=== PATIENT | female | born 1955 | race Caucasian/White ===

== ENCOUNTER 2019-09-27 12:27 | Observation (INO) ==
[2019-09-27 12:58] LABS: Basophils # (auto) 0.03 K/uL (0-0.2); Basophils % (auto) 0.4 %; Eosinophils # (auto) 0.12 K/uL (0-0.5); Eosinophils % (auto) 1.7 %; Hematocrit (blood only) 39.7 % (37-47); Hemoglobin 13.4 g/dL (12.0-16.0); Immature Granulocytes # (auto) 0.02 K/uL (0.00-0.02); Immature Granulocytes % (auto) 0.3 %; Lymphocytes # (auto) 2.11 K/uL (1.2-3.4); Lymphocytes % (auto) 30.7 %; Mean Corpuscular Hemoglobin 29.3 pg (25-34); Mean Corpuscular Hgb Conc 33.8 g/dL (32-36); Mean Corpuscular Volume 86.9 fL (80-100); Mean Platelet Volume 10.2 fL (7.4-10.4); Monocytes # (auto) 0.48 K/uL (0.11-0.59); Neutrophils # (auto) 4.12 K/uL (1.4-6.5); Neutrophils % (auto) 59.9 %; Platelet Count 198 K/uL (130-400); RDW Standard Deviation 41.5 fL (36.4-46.3); Red Blood Count 4.57 M/uL (4.2-5.4); White Blood Count 6.88 K/uL (4.8-10.8)
[2019-09-27] MEDS ORDERED: NITROGLYCERIN SL 0.4 MG/TAB TAB SL STA (13:03)
[2019-09-27 13:15] LABS: Alanine Aminotransferase 25 U/L (12-78); Aspartate Aminotransferase 15 U/L (15-37); BUN Creatinine Ratio 18.9 (10-20); Blood Urea Nitrogen 15 mg/dl (7-18); Calcium 9.2 mg/dl (8.5-10.1); Carbon Dioxide 27 mmol/L (21-32); Chloride 106 mmol/L (98-107); Creatinine Clr Calc Pharmacy 84.9 ml/min; Est GFR (African American) 89.6; Est GFR (Non-African American) 77.3; Glucose 101 mg/dl (70-99); Lipase 153 U/L (73-393); Potassium 3.8 mmol/L (3.5-5.1); Sodium 139 mmol/L (136-145)
[2019-09-27 13:20] LABS: Albumin Globulin Ratio 1.1 (0.9-2); Alkaline Phosphatase 72 U/L (45-117); Bilirubin,Total 0.4 mg/dl (0.2-1); Globulin 3.7 gm/dl (2.5-4.0); Total Protein 7.7 gm/dl (6.4-8.2); Troponin I < 0.015 ng/ml (0-0.045)
[2019-09-27 13:41] LABS: Partial Thromboplastin Time 26.9 Seconds (21.0-31.0); Prothrombin Time 10.5 Seconds (9.0-12.0)
--- NOTE | 2019-09-27 13:43 | XRay Report ---
SINGLE VIEW CHEST CLINICAL HISTORY: Atypical chest pain. FINDINGS: An AP, portable, upright chest radiograph is obtained. No prior studies are available for c omparison at the time of dictation. The cardiomediastinal silhouette is unremarkable. The lungs and p leural spaces are clear. No pneumothorax is seen. The skeletal structures are osteopenic. The bony th orax is grossly intact. IMPRESSION: No active disease in the chest. Electronically signed by: Farhat Parsons M.D. 09/27/2019 1:41 PM
--- NOTE | 2019-09-27 17:52 | Emergency Department Note ---
Entered by Karthikeyan Moreno acting as a scribe for Mayank Ordonez MD ED Provider Note CHIEF COMPLAINT: Chest pain HISTORY OF PRESENT ILLNESS: The patient is a 64 year old female who presents to the Emergency Room with complaints of intermittent left sided chest discomfort that started 5 days ago. The patient rates the pain as a 5/10 at its worst but notes currently her pain is just a 3/10. The patient states that today's pain started about 6 hours ago upon waking up this morning. The patient adds that she has associated tingling down her left arm and a burning pain in her jaw. Additionally the patient endorses intermittent headaches. The patient mentioned that she had rheumatic fever as a child and has had 4 similar episodes of this chest pain in the past. The patient was seen at her doctors office prior to arrival today where she received Nitro and 2 baby Aspirin with no relief of symptoms. The patient denies any lower extremity swelling, recent travel or recent surgeries. The patient does have a family history of CAD. Pt denies LOC, fevers, chills, diaphoresis, visual changes, neck pain, breathing difficulties, nausea, vomiting, abdominal pain, back pain, melena, hematochezia, urinary symptoms, numbness, weakness, lymphadenopathy, rash, or other complaints. REVIEW OF SYSTEMS: See HPI for pertinent positives and negatives. A total of ten systems were reviewed and were otherwise negative. PMHx/PSHx: Cervical radiculopathy, Rosacea, HTN SOCIAL HISTORY: Patient lives at home. PHYSICAL EXAM: GENERAL: Awake, alert, well-appearing, in no distress HENT: Normocephalic, atraumatic. Oropharynx unremarkable. EYES: Normal conjunctiva. Sclera non-icteric. NECK: Inspection normal. Non-tender. Supple. No nuchal rigidity. FROM. No masses. RESPIRATORY: Clear to auscultation. No wheezes. No rales. Normal respiratory effort. CARDIAC: Normal rate. Normal rhythm. No murmurs. No rubs. Extremities warm and well perfused. Pulses equal. No JVD. GI: Soft, non-distended. No tenderness to palpation. No rebound or guarding. No masses. RECTAL: Deferred. MUSCULOSKELETAL: Atraumatic. Chest examination reveals no tenderness. The back is symmetrical on inspection without obvious abnormality. There is no CVA tenderness to palpation. No joint edema. LOWER EXTREMITIES: Calves are equal size bilaterally and non-tender. No edema. No discoloration. NEURO: Normal sensorium. No sensory or motor deficits noted. SKIN: No rash or jaundice noted. EMERGENCY DEPARTMENT COURSE: 1259: The patient was evaluated in room A03, and a complete history and physical examination were performed. 1447: I discussed the patient's case with Dr. Lenz - Cardiology and he is going to bring the patient over for an echo test. 1506: I went to udpdate the patient on the plan and she was already brought to the stress test. 1540: I spoke to Dr. Lenz who said the patient's stress test was abnormal. She developed ventricular bigeminy along with ST changes.They are going to pursue a formal echo at this point and recommended keeping the patient for cardiac observation. 1624: I reevaluated the patient and she is resting in bed. I updated her on the results as well as the treatment plan and she is agreeable. 1634: I discussed the patient's case with Dr. Rapp - [facility] Hospitalist. She is going to accept the patient for further evaluation. MEDICAL DECISION MAKING: A3 Prior records/ancillary studies reviewed. Triage Nursing notes reviewed and agree them. Additional history obtained from the family. The patient's history was concerning for chest pain. Differential diagnosis: Etiologies such as cardiac ischemia, aortic dissection, pulmonary embolism, pneumonia, pneumothorax, musculoskeletal, infections, pericarditis, myocarditis, esophageal rupture, gastrointestinal, as well as others were entertained. Physical examination: As above. ER treatment provided: Sublingual nitroglycerin Cardiac monitoring On reassessment the patient felt better. Diagnostic interpretation by me: The electrocardiogram was negative for pathologic change. The labs revealed an unremarkable CBC and chemistry panel. Troponin negative. Imaging studies: Chest x-ray negative for acute process. Consultation: A consultation was placed with cardiology, Dr. Celso Lenz. The case was discussed. He agreed to perform a stress test in order to further evaluate the need for admission. The patient unfortunately had an abnormal stress test and cardiology required additional time to elucidate the causes of her chest pain and this abnormal stress test. A consultation was placed with the hospitalist. The case was discussed and diagnostics were reviewed. The patient was evaluated in the ER for further treatment. OBSERVATION NOTE: The patient has a family history of coronary heart disease. Patient was first seen at 12:59 and observation began at 12:59 and was necessary in order to determine if hospitalization is necessary for further cardiac evaluation. Upon reevaluation, about 4 hours of observation revealed that the patient should be admitted to the hospitalist service. Admission occurred on 09/27/19 at 16:44. IMPRESSION: Left sided chest pain Abnormal cardiac stress test Hypertension PLAN: Being evaluated by the hospitalist The scribe's documentation has been prepared under my direction and personally reviewed by me in its entirety. I confirm that the note above accurately reflects all work, treatment, procedures, and medical decision making performed by me. Impression & Plan Left-sided chest pain, Abnormal cardiovascular stress test, Hypertension Past Med/Surg History Medical History Benign essential hypertension (Acute) Cervical radiculopathy at C7 (Acute) Cervicalgia (Acute) Rosacea (Acute) Family History Other Coronary heart disease Social History marital status: Current Living Situation: Family current occupational status: unemployed Feels Safe at Home: Yes Smoking Status: Never smoker Hx Alcohol Use: No Hx Substance Use: No Dental Care, Regularly: Yes Physical Activity Frequency: Other Seatbelt Use: always Sunscreen Use: Yes Results & Data Vital Signs Vital Signs - 24 hr 09/27/19 12:32 09/27/19 12:40 09/27/19 12:52 Temperature 36.6 C Temperature Source Oral Pulse Rate 66 58 L 60 Pulse Rate [Apical] Pulse Rate from SpO2 Sensor 59 L Pulse Rhythm Regular Pulse Rhythm [Apical] Respiratory Rate 18 12 Respiratory Effort / Characteristics Respiratory Depth Normal Blood Pressure 205/103 H 177/79 H Blood Pressure [Right Arm] Blood Pressure Mean 137 114 Blood Pressure Mean [Right Arm] Blood Pressure Position [Right Arm] Pulse Oximetry 99 98 97 Oxygen Delivery Method Room Air Room Air Sepsis Recent Fever Within 48 Hours No Sepsis New/Unexplained Change in Mental Status No Sepsis Action Taken by Nursing No Action Required 09/27/19 12:56 09/27/19 13:00 09/27/19 13:15 Temperature Temperature Source Pulse Rate 65 Pulse Rate [Apical] 65 Pulse Rate from SpO2 Sensor 66 Pulse Rhythm Pulse Rhythm [Apical] Regular Respiratory Rate 23 13 Respiratory Effort / Characteristics Respiratory Depth Normal Blood Pressure 171/102 H Blood Pressure [Right Arm] 155/82 H Blood Pressure Mean 133 Blood Pressure Mean [Right Arm] 106 Blood Pressure Position [Right Arm] Sitting Pulse Oximetry 97 100 97 Oxygen Delivery Method Room Air Room Air Sepsis Recent Fever Within 48 Hours Sepsis New/Unexplained Change in Mental Status Sepsis Action Taken by Nursing 09/27/19 14:15 09/27/19 16:28 Temperature Temperature Source Pulse Rate Pulse Rate [Apical] 58 L 72 Pulse Rate from SpO2 Sensor Pulse Rhythm Pulse Rhythm [Apical] Respiratory Rate 14 18 Respiratory Effort / Characteristics Non-Labored Respiratory Depth Normal Blood Pressure Blood Pressure [Right Arm] 182/78 H 187/104 H Blood Pressure Mean Blood Pressure Mean [Right Arm] 112 131 Blood Pressure Position [Right Arm] Sitting Pulse Oximetry 99 100 Oxygen Delivery Method Room Air Sepsis Recent Fever Within 48 Hours Sepsis New/Unexplained Change in Mental Status Sepsis Action Taken by [facility] Medications Current Medication List: was personally reviewed by me Laboratory Data Attestation: I reviewed the patient's lab results. Result diagrams: 09/27/19 12:48 09/27/19 12:48 Lab Results 09/27/19 09/27/19 09/27/19 Range/Units 12:48 12:48 12:48 WBC 6.88 (4.8-10.8) K/uL RBC 4.57 (4.2-5.4) M/uL Hgb 13.4 (12.0-16.0) g/dL Hct 39.7 (37-47) % MCV 86.9 (80-100) fL MCH 29.3 (25-34) pg MCHC 33.8 (32-36) g/dL RDW Std Deviation 41.5 (36.4-46.3) fL RDW Coeff of Dio 13.0 (11.5-14.5) % Plt Count 198 (130-400) K/uL MPV 10.2 (7.4-10.4) fL Immature Gran % (Auto) 0.3 % Neut % (Auto) 59.9 % Lymph % (Auto) 30.7 % Carroll % (Auto) 7.0 % Eos % (Auto) 1.7 % Baso % (Auto) 0.4 % Immature Gran # (Auto) 0.02 (0.00-0.02) K/uL Neut # (Auto) 4.12 (1.4-6.5) K/uL Lymph # (Auto) 2.11 (1.2-3.4) K/uL Carroll # (Auto) 0.48 (0.11-0.59) K/uL Eos # (Auto) 0.12 (0-0.5) K/uL Baso # (Auto) 0.03 (0-0.2) K/uL PT Cancelled INR Cancelled APTT Cancelled PTT Ratio Cancelled Sodium 139 (136-145) mmol/L Potassium 3.8 (3.5-5.1) mmol/L Chloride 106 (98-107) mmol/L Carbon Dioxide 27 (21-32) mmol/L Anion Gap 7.0 (3-11) BUN 15 (7-18) mg/dl Creatinine 0.81 (0.6-1.2) mg/dl Est Cr Clr Drug Dosing 84.9 ml/min Est GFR ( Amer) 89.6 Est GFR (Non-Af Amer) 77.3 BUN/Creatinine Ratio 18.9 (10-20) Glucose 101 H (70-99) mg/dl Calcium 9.2 (8.5-10.1) mg/dl Total Bilirubin 0.4 (0.2-1) mg/dl AST 15 (15-37) U/L ALT 25 (12-78) U/L Alkaline Phosphatase 72 (45-117) U/L Troponin I < 0.015 (0-0.045) ng/ml Total Protein 7.7 (6.4-8.2) gm/dl Albumin 4.0 (3.4-5.0) gm/dl Globulin 3.7 (2.5-4.0) gm/dl Albumin/Globulin Ratio 1.1 (0.9-2) Lipase 153 (73-393) U/L 09/27/19 Range/Units 13:18 WBC (4.8-10.8) K/uL RBC (4.2-5.4) M/uL Hgb (12.0-16.0) g/dL Hct (37-47) % MCV (80-100) fL MCH (25-34) pg MCHC (32-36) g/dL RDW Std Deviation (36.4-46.3) fL RDW Coeff of Dio (11.5-14.5) % Plt Count (130-400) K/uL MPV (7.4-10.4) fL Immature Gran % (Auto) % Neut % (Auto) % Lymph % (Auto) % Carroll % (Auto) % Eos % (Auto) % Baso % (Auto) % Immature Gran # (Auto) (0.00-0.02) K/uL Neut # (Auto) (1.4-6.5) K/uL Lymph # (Auto) (1.2-3.4) K/uL Carroll # (Auto) (0.11-0.59) K/uL Eos # (Auto) (0-0.5) K/uL Baso # (Auto) (0-0.2) K/uL PT 10.5 INR 1.0 APTT 26.9 PTT Ratio 1.0 Sodium (136-145) mmol/L Potassium (3.5-5.1) mmol/L Chloride (98-107) mmol/L Carbon Dioxide (21-32) mmol/L Anion Gap (3-11) BUN (7-18) mg/dl Creatinine (0.6-1.2) mg/dl Est Cr Clr Drug Dosing ml/min Est GFR ( Amer) Est GFR (Non-Af Amer) BUN/Creatinine Ratio (10-20) Glucose (70-99) mg/dl Calcium (8.5-10.1) mg/dl Total Bilirubin (0.2-1) mg/dl AST (15-37) U/L ALT (12-78) U/L Alkaline Phosphatase (45-117) U/L Troponin I (0-0.045) ng/ml Total Protein (6.4-8.2) gm/dl Albumin (3.4-5.0) gm/dl Globulin (2.5-4.0) gm/dl Albumin/Globulin Ratio (0.9-2) Lipase (73-393) U/L Administered Medications Discontinued Medications Nitroglycerin (Nitrostat) 0.4 mg SL NOW STA Stop: 09/27/19 13:04 Last Admin: 09/27/19 13:13 Dose: 0.4 mg Documented by: [id number] Imaging Data Radiologist's Impression: Radiology results as stated below per my review and the radiologist's interpretation: SINGLE VIEW CHEST CLINICAL HISTORY: Atypical chest pain. FINDINGS: An AP, portable, upright chest radiograph is obtained. No prior studies are available for comparison at the time of dictation. The cardiomediastinal silhouette is unremarkable. The lungs and pleural spaces are clear. No pneumothorax is seen. The skeletal structures are osteopenic. The bony thorax is grossly intact. IMPRESSION: No active disease in the chest. Electronically signed by: Farhat Parsons M.D. 09/27/2019 1:41 PM ECG Data Attestation: I personally reviewed and interpreted this ECG as follows: Indication: + chest pain Rate (beats per minute): 57 Rhythm: sinus bradycardia ECG ST segments: no ST depression and no ST elevation ECG Findings: no PACs and no PVCs Blood Pressure Blood Pressure Findings: Elevated blood pressure Blood Pressure Disposition: further management by hospitalist Discharge Plan Visit Data Chief Complaint: Chest Pain Stated Complaint: CHEST PAIN TINGLING DOWN ARM REF BY DR WONG ED Provider: Mayank Ordonez Discharge Problem: Left-sided chest pain, Abnormal cardiovascular stress test, Hypertension Patient Disposition: Being Evaluated by Hospitalist Forms Stand Alone Forms: Call Back Authorization, [facility] Prescriptions Prescriptions: No Action metoprolol tartrate 50 mg tablet 25 mg PO BID Qty: 90 RF: 3 naproxen sodium 220 mg tablet 220 mg PO BID RF: 0 ascorbic acid (vitamin C) 500 mg tablet 500 mg PO BID RF: 0 cod liver oil capsule 1 cap PO QAM RF: 0 Referrals Referrals: Farhat Wong MD [Primary Care Provider] - Discharge Problem: Hypertension Qualifiers: Hypertension type: unspecified Qualified Code(s): I10 - Essential (primary) hypertension The scribe's documentation has been prepared under my direction and personally reviewed by me in its entirety. I confirm that the note above accurately reflects all work, treatment, procedures, and medical decision making performed by me.
--- NOTE | 2019-09-27 18:17 | History & Physical Report ---
Date of Service September 27, 2019 Assessment & Plan (1) Left-sided chest pain: Thelma is a 64-year-old female with a past medical history of self-limited sarcoidosis, rheumatic fever, and hypertension who presents with an episode of palpitations and who was noted to have potential Q waves on outpatient EKG. Atypical chest pain/palpitations with abnormal EKG and stress test Ventricular bigeminy induced on exercise stress test, resolved with rest EKG shows sinus bradycardia, normal axis, no T wave inversions, no ST segment changes. ?q waves in lateral leads (I, aVL) Hemodynamically stable at time of visit Cardiology consulted Transthoracic echo pending Evaluation for cardiac catheterization by cardiology pending Troponin negative, trend troponin every 6 hours x3 total No improvement in pain with nitro sublingual No history of high alcohol intake Hypertension Continue metoprolol 50 mg twice daily, hold for heart rate less than 60 History of sarcoidosis Patient has a history of sarcoidosis noted on lymph node biopsy which was reportedly done at [facility] 8 years ago. Per patient self resolved, and has not had any symptoms or need to follow-up since then. FEN/GI: Heart healthy diet, n.p.o. at midnight DVT prophylaxis: SCDs Disposition: PCU/telemetry (2) Abnormal cardiovascular stress test: (3) Hypertension: History of Present Illness Chief Complaint: Palpitations, atypical chest pain Primary Care Provider: Farhat Urias MD Thelma is a 64-year-old female with a past medical history of self-limited sarcoidosis, rheumatic fever, and hypertension who presents with an episode of palpitations and who was noted to have potential Q waves on outpatient EKG. Farnaz symptoms began night, 5 days prior to admission, when she did not have any pain but had a strong sense of her heartbeat and palpitations in her chest. The next morning she continued to have a burning ache in her left upper chest which radiated into her jaw and chin and down the proximal part of her left arm and shoulder. This was not associated with exercise, it was not worsened by exercise, and she did not experience diaphoresis, lightheadedness, dizziness, or syncope with this episode. She had an associated headache. Her systems intermittently persisted over the weekend and she presented to her primary care physician for evaluation today. In office EKG was concerning for Q waves, and her pain did not improve with Nitro or aspirin x2. she was referred to the ED for further evaluation. She was experiencing left chest burning, and left arm discomfort which did not improve with nitro. She denies any recent exposure to ticks, denies erythema migrans, no fever/chills/arthralgias/joint swelling. After arrival to the hospital cardiology was consulted and she received a exercise stress test. She immediately developed ventricular bigeminy on exercise stress which resolved following cessation of exercise. This induced the palpitations. She did not have any pain, but did get a slight headache. She reports she has been evaluated for similar symptoms twice in the past. Her first episode was 34 years ago when she had a sling box style Holter which did not show any acute findings. She had symptoms 6 years ago and had another EKG, Holter, and journal log done at [facility] which did not show any acute findings. Review of systems: Denies fever, chills, sweats. Endorses headache. Denies current lightheadedness/dizziness, endorses an episode of lightheadedness 2 weekends ago which resolved with nasal decongestant. Denies syncope. Denies vision change. Denies hearing change. Denies neck swelling, neck stiffness. Denies focal or diffuse weakness. Denies focal neurologic deficits. She denies shortness of breath, productive cough, endorses a postnasal drip cough, denies nausea, vomiting, diarrhea, constipation, abdominal pain, rash, skin changes. She endorses occasional itchy spots on her nose which resolved with cream. Surgical history: Tonsillectomy, section, sinus surgery, and a lymph node biopsy for lung cancer versus sarcoidosis at [facility] which was reportedly positive for sarcoidosis which self resolved without intervention or treatment. Family history: Coronary artery disease and hypertension in her mother, father. No diabetes mellitus. Denies colon cancer, lung cancer, or thyroid cancer. Social history: Reviewed. , is present during exam. Denies any current or former tobacco use, denies alcohol use, denies recreational substance use. Allergies Allergy/AdvReac Type Severity Reaction Status Date / Time No Known Drug Allergies Allergy Verified 09/27/19 13:51 Home Medications Home Medications Medication Instructions Recorded Confirmed Type metoprolol tartrate 50 mg tablet 25 mg PO BID #90 tab 07/06/19 09/27/19 Rx ascorbic acid (vitamin C) 500 mg 500 mg PO BID 09/27/19 09/27/19 History tablet cod liver oil 1 cap PO QAM 09/27/19 09/27/19 History naproxen sodium 220 mg tablet 220 mg PO BID 09/27/19 09/27/19 History Past Med/Surg History Medical History (Updated 09/27/19 @ 18:08 by Nik Dacosta MD) Benign essential hypertension (Acute) Cervical radiculopathy at C7 (Acute) Cervicalgia (Acute) Rosacea (Acute) Sarcoidosis of lymph nodes Family History Other Coronary heart disease Social History marital status: Current Living Situation: Family current occupational status: unemployed Feels Safe at Home: Yes Smoking Status: Never smoker Hx Alcohol Use: No Hx Substance Use: No Dental Care, Regularly: Yes Physical Activity Frequency: Other Seatbelt Use: always Sunscreen Use: Yes Review of Systems Review of Systems: All systems reviewed & are unremarkable except as noted in HPI & below Physical Exam Physical Exam: General: A&Ox3. NAD. Cooperative. Speech fluent, thought process linear, goal-directed. HEENT: Atraumatic, normocephalic. No facial asymmetry. No nasolabial flattening or hypertonicity. Facial strength intact, facial sensation intact in all distributions. Normal external nasal anatomy. Normal external ear anatomy. Nonicteric sclera. Extraocular movements intact without nystagmus. Pupils equal and reactive to light and accommodation. Mucous membranes moist. Posterior oropharynx without erythema, exudate. Uvula midline. No anterior/posterior cervical chain adenopathy, no clavicular adenopathy. Pulm: CTAB A&P. -wheezes, -rales, -rhonchi. Symmetrical chest rise. No increase work of breathing. No respiratory distress. Cardiac: Bradycardic, -mrg. Radial pulses intact and symmetrical, PT pulses intact and symmetrical Abdominal: Nontender, nondistended, soft. BS present. Extremity: Sensation to soft touch intact in hallux and fingertips bilaterally without asymmetry. Finger flexion/extension, nurses director strength, interosseous strength, wrist flexion/extension, elbow flexion/extension, shoulder internal rotation/external rotation/flexion/extension, hip flexion, knee flexion/extension, ankle plantar flexion/dorsiflexion intact with 5/5 strength bilaterally. Constitutional: WD/WN, vitals as above Eyes: normal visual villalpando by confrontation and + anicteric sclerae Neck: normal visual inspection and trachea midline Respiratory: normal respiratory effort, lungs clear to auscultation Cardiovascular: Rate/Rhythm: regular rate and regular rhythm Gastrointestinal (Abdomen): Inspection/Auscultation: abdomen not distended Percussion/Palpation: abdomen soft; abdomen nontender Musculoskeletal: Head/Neck/Chest: normocephalic and head atraumatic Neg for peripheral LE edema, + pedal pulses Skin: no rashes, warm and dry Neurologic: awake; not confused Speech / Cognition: normal speech Psychiatric: A+Ox3, euthymic affect Lymphatic: Exam as done by Diana Rapp DO Results & Data Vital Signs (Past 12 Hours) Vital Signs Temp Pulse Pulse Resp BP BP Pulse Ox 09/27/19 16:28 72 18 187/104 H 100 09/27/19 14:15 58 L 14 182/78 H 99 09/27/19 13:15 65 13 155/82 H 97 09/27/19 13:00 65 23 171/102 H 100 09/27/19 12:56 97 09/27/19 12:52 60 12 177/79 H 97 09/27/19 12:40 58 L 98 09/27/19 12:32 36.6 C 66 18 205/103 H 99 Supervising Physician Co-Signing Physician Notes Pt seen and examined by me. Continues to have a mild 1/10 chest pain and headache as she has had for the last few days. She also has some L UE tingling, which is decreased from prior. She was given nitro and aspirin but there was no change in her sx. She has been tolerating PO without issue and is hungry. Agree with HPI/ROS as noted by resident See above for my exam in PE section Agree with plan as outlined above Chest pain, ventricular bigeminy noted on stress test ECHO done but with read pending Trop neg x1, serials pending CXR neg for acute EKG sinus guillermo Has hx of 2 other similar events 34 and 6 yrs ago, work-up was neg at that time Cardiology c/s pending, possible cath tomorrow Reported hx of nodule that was noted to be sarcoid on biopsy 8 yrs ago, but no hx of tx and no recurrence Resident Activity Tracking Resident Involvement: Resident Care Provided Care Provided: Adult Hospital Medicine (1) Hypertension Hypertension type: unspecified Qualified Code(s): I10 - Essential (primary) hypertension
[2019-09-27] MEDS ORDERED: HydrALAZINE 10 MG TAB PO PRN (18:28)
[2019-09-27] MEDS ORDERED: HydrALAZINE HCL 20 MG/ML VIAL ONE (19:28)
[2019-09-27] MEDS ORDERED: ACETAMINOPHEN 325 MG TAB PO PRN (19:55)
[2019-09-27] MEDS ORDERED: NITROGLYCERIN SL 0.4 MG/TAB TAB SL PRN (19:55)
[2019-09-27] MEDS ORDERED: POLYETHYLENE (MIRALAX) 17 GM PACK PO PRN (19:55)
--- NOTE | 2019-09-27 20:29 | Billing Data ---
Coding Level of Care Code 20136 Initial Inpt Care Lvl 3
[2019-09-27] MEDS: METOPROLOL TARTRATE 25 MG TAB PO SCH (21:01)
[2019-09-27] MEDS: ASCORBIC ACID 500 MG TAB PO SCH (21:01)
[2019-09-28] MEDS ORDERED: INFLUENZA ADMINISTRATION CHARGE ONE (01:30)
[2019-09-28] MEDS ORDERED: INFLUENZA VIRUS QUAD VACCINE 0.5 ML SYR IM ONE (01:30)
[2019-09-28] MEDS: METOPROLOL TARTRATE 25 MG TAB PO SCH (09:02)
[2019-09-28] MEDS: ASCORBIC ACID 500 MG TAB PO SCH (09:02)
--- NOTE | 2019-09-28 10:27 | Cardiology Consultation ---
Date of Consultation September 28, 2019 Assessment & Plan (1) Left-sided chest pain: Her left-sided chest discomfort has resolved, the cause of it remains uncertain. With negative cardiac enzymes, no significant electrocardiographic abnormalities and a negative stress echo for ischemia it is almost certainly noncardiac. I did tell her we would probably not know the cause of it. (2) Frequent unifocal PVCs: She did have frequent PVCs and ventricular bigeminy on stress testing yesterday, this did reproduce her clinical symptoms of palpitations which dates back many years. Here on telemetry she has had no premature ventricular beats, I did have her walk somewhat briskly around the hallway and although her heart rate did not come up as high as it did on the stress test she did not have any premature ventricular beats. She has been maintained on metoprolol tartrate 25 mg twice a day as an outpatient, I would recommend increasing that to metoprolol 100 mg daily which could be in divided doses although using metoprolol succinate 100 mg once daily would probably be reasonable. (3) Hypertension: She does have significant hypertension, she has been treated in the past but her pressure was quite elevated here. Since beta-blockade will likely help with her blood pressure as well as her premature ventricular beats I recommended that she use increase beta-blockers to try to control her blood pressure. History of Present Illness Reason for Consultation: Chest discomfort, PVCs Attending Physician: Erma Rodarte MD History of Present Illness This is a 64-year-old woman who has a history of sarcoidosis, rheumatic fever with no known valvular problems, hypertension, long-standing palpitations and chest discomfort recently. She presented to her PCP on September 27, 2019 with symptoms of chest discomfort which occurred about 5 days prior to presentation and was in her chest, her left arm and her jaw. It was not exercise related, had been continuous for that duration of time although not severe. She was given aspirin nitroglycerin with possible improvement but not relief, and she was sent to the emergency room. In the emergency room she continued to have the discomfort, troponin x2 was negative and therefore we performed a treadmill exercise test on September 27, 2019. During the stress test she quickly went into ventricular bigeminy, had shortness of breath and had no change in her chest discomfort. The stress images were negative for ischemia although little hard to interpret due to the ventricular bigeminy. The electrocardiographic recordings during the test were technically positive with ST depression but again hard to interpret due to the ventricular bigeminy. We felt she should be admitted for observation. She does have a history of palpitations going back to when her twins were born which was 30 some years ago. She felt that the palpitations she had during the stress test when she developed ventricular bigeminy were quite similar. Apparently over the years she has had these on several occasions but not very often and has had it evaluated with Holter monitors which evidently did not show anything as well as probably echocardiography but I have not seen those records. She has felt well overnight, she has had essentially resolution of her chest discomfort and has not had palpitations. This morning she feels normal. Allergies Allergy/AdvReac Type Severity Reaction Status Date / Time No Known Drug Allergies Allergy Verified 09/27/19 13:51 Home Medications Home Medications Medication Instructions Recorded Confirmed Type metoprolol tartrate 50 mg tablet 25 mg PO BID #90 tab 07/06/19 09/27/19 Rx ascorbic acid (vitamin C) 500 mg 500 mg PO BID 09/27/19 09/27/19 History tablet cod liver oil 1 cap PO QAM 09/27/19 09/27/19 History naproxen sodium 220 mg tablet 220 mg PO BID 09/27/19 09/27/19 History Patient History Medical History Benign essential hypertension (Acute) Cervical radiculopathy at C7 (Acute) Cervicalgia (Acute) Rosacea (Acute) Sarcoidosis of lymph nodes Family History Other Coronary heart disease Social History Preferred Language: Serbian Communication Ability: Effective Home Health Aide Caregiver Required: No Beliefs That Will Affect Care: None marital status: Current Living Situation: Spouse and Family Current Living Situation Comment: and 2 adult children current occupational status: unemployed Other Information That Helps Us Care for You: No Feels Safe at Home: Yes Safety Concerns: Feels Safe At This Time Smoking Status: Never smoker Second Hand Exposure: No ; Hx Alcohol Use: No Hx Substance Use: No Dental Care, Regularly: Yes Physical Activity Frequency: Other Seatbelt Use: always Sunscreen Use: Yes Review of Systems Review of Systems: All systems reviewed & are unremarkable except as noted in HPI & below Physical Exam Physical Exam: Constitutional: Alert, cooperative and in no distress. HEENT: Unremarkable Neck: No jugular venous distention, carotid pulses are normal and equal bilaterally without bruits. Pulmonary: Clear to auscultation bilaterally. Cardiac: Regular rhythm with no murmur, gallop or rub. Abdomen: Soft, nontender with normal bowel sounds. Extremities: No edema. Distal pulses intact. Neurologic: No focal findings. Gait is steady. Skin: No rash, ecchymoses or petechiae. Results & Data Vital Signs (Past 12 Hours) Vital Signs Temp Pulse Pulse Resp BP Pulse Ox 09/28/19 07:47 68 09/28/19 07:29 36.6 C 60 18 129/81 98 09/28/19 03:10 36.7 C 61 18 123/76 98 09/27/19 23:18 36.5 C 55 L 18 138/78 98 Diagnostic Findings Her electrocardiogram from September 27, 2019 done in our emergency room shows sinus bradycardia at 57 bpm, it is otherwise unremarkable. There is a comparison electrocardiogram done at her PCPs office several hours earlier which shows sinus bradycardia at 56 bpm and it looks very similar. Telemetry: Sinus rhythm, essentially no premature ventricular beats overnight. PG Care Time/CCT Total # of Minutes Spent Total Time Spent with Patient: Total time spent is greater than 50% in c oordination of care (as documented) at patient's floor/unit and/or counseling patient: (1) Hypertension Hypertension type: unspecified Qualified Code(s): I10 - Essential (primary) hypertension
--- NOTE | 2019-09-28 11:34 | Discharge Summary ---
Date of Service September 28, 2019 Admission HPI Per Admitting Provider Thelma is a 64-year-old female with a past medical history of self-limited sarcoidosis, rheumatic fever, and hypertension who presents with an episode of palpitations and who was noted to have potential Q waves on outpatient EKG. Farnaz symptoms began night, 5 days prior to admission, when she did not have any pain but had a strong sense of her heartbeat and palpitations in her chest. The next morning she continued to have a burning ache in her left upper chest which radiated into her jaw and chin and down the proximal part of her left arm and shoulder. This was not associated with exercise, it was not worsened by exercise, and she did not experience diaphoresis, lightheadedness, dizziness, or syncope with this episode. She had an associated headache. Her systems intermittently persisted over the weekend and she presented to her primary care physician for evaluation today. In office EKG was concerning for Q waves, and her pain did not improve with Nitro or aspirin x2. she was referred to the ED for further evaluation. She was experiencing left chest burning, and left arm discomfort which did not improve with nitro. She denies any recent exposure to ticks, denies erythema migrans, no fever/chills/arthralgias/joint swelling. After arrival to the hospital cardiology was consulted and she received a exercise stress test. She immediately developed ventricular bigeminy on exercise stress which resolved following cessation of exercise. This induced the palpitations. She did not have any pain, but did get a slight headache. She reports she has been evaluated for similar symptoms twice in the past. Her first episode was 34 years ago when she had a sling box style Holter which did not show any acute findings. She had symptoms 6 years ago and had another EKG, Holter, and journal log done at [facility] which did not show any acute findings. Review of systems: Denies fever, chills, sweats. Endorses headache. Denies current lightheadedness/dizziness, endorses an episode of lightheadedness 2 weekends ago which resolved with nasal decongestant. Denies syncope. Denies vision change. Denies hearing change. Denies neck swelling, neck stiffness. Denies focal or diffuse weakness. Denies focal neurologic deficits. She denies shortness of breath, productive cough, endorses a postnasal drip cough, denies nausea, vomiting, diarrhea, constipation, abdominal pain, rash, skin changes. She endorses occasional itchy spots on her nose which resolved with cream. Surgical history: Tonsillectomy, section, sinus surgery, and a lymph node biopsy for lung cancer versus sarcoidosis at [facility] which was reportedly positive for sarcoidosis which self resolved without intervention or treatment. Family history: Coronary artery disease and hypertension in her mother, father. No diabetes mellitus. Denies colon cancer, lung cancer, or thyroid cancer. Social history: Reviewed. , is present during exam. Denies any current or former tobacco use, denies alcohol use, denies recreational substance use. Principal Diagnosis Atypical, noncardiac chest pain Ventricular bigeminy Discharge Exam Constitutional WD/WN, vitals as above Eyes PERRL, conjunctivae normal, anicteric sclerae ENMT external ear and nose normal, oropharynx normal Neck trachea midline, no thyromegaly Respiratory normal respiratory effort, lungs clear to auscultation Cardiovascular RRR, no murmur, no edema Gastrointestinal (Abdomen) normal bowel sounds, soft, nontender, no hepatosplenomegaly Musculoskeletal Extremities: extremities normal to inspection; no cyanosis and no clubbing Skin no rashes, warm and dry Neurologic patellar DTR's 2+ bilat, sensation intact and PERRL, EOMI, accommodation nl, no face palsy, no dysarthria CN's II-XI intact bilaterally, moves all extremities (5 out of 5 strength throughout) and awake; no focal motor deficits Speech / Cognition: normal speech Motor/Sensory: no tremor Psychiatric A+Ox3, euthymic affect Discharge Data Allergies Allergy/AdvReac Type Severity Reaction Status Date / Time No Known Drug Allergies Allergy Verified 09/27/19 13:51 Consultations 09/27/19 16:24 ED Decision to Admit Stat 09/27/19 19:55 Consult Cardiology Routine Procedures Performed Stress echocardiogram if negative for inducible ischemia, preserved EF Ordered Studies Chest x-ray Hospital Course (1) Left-sided chest pain: Thelma is a 64-year-old female with a past medical history of self-limited pulmonary sarcoidosis, rheumatic fever, and hypertension who presents with an episode of palpitations and left-sided chest pain radiating to the neck and down the arm that was constant for 4 days and who was noted to have potential Q waves on outpatient EKG. Atypical chest pain/palpitations with abnormal EKG and stress test that was negative however induced ventricular bigeminy Ventricular bigeminy induced on exercise stress test, resolved with rest- cardiology does not feel that the bigeminy is related to ischemia and therefore does not need any further cardiac evaluation EKG shows sinus bradycardia, normal axis, no T wave inversions, no ST segment changes. With Q waves in lateral leads (I, aVL) Serial troponin was negative x3 No improvement in pain with nitro sublingual No history of high alcohol intake -She does take naproxen regularly-it is felt that her pain could be either a cervical radiculopathy versus related to a GI reflux type pain Regardless, her pain was pretty much significantly resolved by the day after admission She had a nonfocal neurological examination and does not need any imaging of the neck at this time She was ambulating around the halls without any difficulties or to discharge -Encouraged her to try Tums or Zantac as needed if pain recurs -Advised her to stop excessive NSAID use and take acetaminophen as needed for joint pains -Her palpitations were related to her ventricular bigeminy and were a separate issue and not related to the chest pain-she has a 30-year history of occasional palpitations Although she has sarcoidosis, it is not felt that she needs any further work-up for cardiac sarcoidosis at this time as she has a normal EF and no history of syncope-however, could consider cardiac MRI as an outpatient -She does not require follow-up with cardiology as per the recommendation -We will increase her metoprolol to metoprolol tartrate 50 mg p.o. twice daily and then convert to metoprolol succinate 100 mg once daily once she runs out of her current supply of tartrate-this is in an effort to suppress her bigeminy Hypertension-blood pressures were mildly elevated here Increased home metoprolol dose as above -Follow as an outpatient History of sarcoidosis Patient has a history of pulmonary sarcoidosis noted on lymph node biopsy which was reportedly done at [facility] 8 years ago. Per patient self resolved, and has not had any symptoms or need to follow-up since then. Disposition-stable for discharge to home (2) Hypertension: Total Time Total Time Spent Total Time Spent (In Minutes): 40 minutes Total Time Includes: Examination of the Patient, Discharge Planning, Medication Reconciliation and Communication With Other Providers (Cardiology) Discharge Plan Discharge Items Patient Disposition: Home - Self-Care Reason For Visit: PALPITATIONS,EKG ABNORMALITIES Discharge Diagnosis: Ventricular bigeminy, Atypical chest pain Condition on Discharge: Good Activity: Resume your previous activity Bathing: No limitations Driving/Machine Use: No limitations Non-emergency contact: Primary Care Provider Call non-emergency contact if: you have any medication questions, your symptoms worsen, your pain is not controlled, your pain is worsening, your pain is u nusual for you and your pain is concerning for you Follow-up/Referrals: Farhat Urias MD [Primary Care Provider] - Diet: Regular Addtl Attending Provider Instructions: You were admitted with chest pain that was determined to be not of a cardiac nature. Your stress test of the heart was negative. You had extra beats of the heart called ventricular bigeminy. Your metoprolol dose will be increased to metoprolol tartrate 50 mg by mouth twice daily until your current supply runs out-you should then convert to metoprolol succinate (the long-acting version) at 100 mg daily. Your chest pain may be related either to acid reflux or perhaps to a pinched nerve in the neck as the pain was traveling down the arm and into the hand with some numbness occasionally in the fingertips. You should stretch the neck with gentle range of motion exercises. You can also try taking Tums or Zantac [id number] if your symptoms recur to see if this improves them. If you find you are taking frequent Naprosyn or other NSAIDs for your neck pain, this can also worsen gastrointestinal reflux symptoms. It is safer to take Tylenol/acetaminophen instead for neck pain. Please follow-up with your primary care physician as will be scheduled for you. Pending Studies at Discharge: No Stand-Alone Forms: Call Back Authorization, [facility] Medications and DC Order Prescriptions: New acetaminophen [Mapap (acetaminophen)] 325 mg Tablet 650 mg PO Q4H PRN (Reason: pain) Qty: 30 RF: 0 Continued ascorbic acid (vitamin C) 500 mg tablet 500 mg PO BID RF: 0 cod liver oil capsule 1 cap PO QAM RF: 0 Changed metoprolol tartrate 50 mg tablet 50 mg PO BID Qty: 90 RF: 3 Discontinued naproxen sodium 220 mg tablet 220 mg PO BID RF: 0 Discharge Orders: Discharge Order (Routine); Ordered 11/21/19 Ordered By: Erma Rodarte Admission Data Admit Date/Time: 09/27/19 18:08 Attending Provider: rEma Rodarte Admit Provider: Nik Dacosta Primary Care Provider: Farhat Urias Other Providers: Diana Rapp ; Celso Lenz
== END 2019-09-28 12:17 | disposition home or self-care (01) ==
LOC: 2S 12:27 → ED 12:27 → SUATTDRO 18:08 → 2S 19:21

== ENCOUNTER 2021-06-19 06:00 | Observation (INO) ==
[2021-06-19] MEDS ORDERED: SODIUM CHLORIDE 0.9% 500 ML IV STA (06:44)
--- NOTE | 2021-06-19 07:21 | Emergency Department Note ---
History of Present Illness General Chief complaint: Arrhythmia/Palpitations Stated complaint: IRREG HEART BEAT Time Seen by Provider: 06/19/21 06:31 Source: patient History of Present Illness Provider complaint: Palpitations Onset (ago): hour(s) Location: chest Pain Consistency: + constant and + now resolved Quality: + other ([place] heart racing) Relieved By: + none Associated symptoms: + cough (Mild cough yesterday) and + nausea/vomiting (Nausea on the way here now resolved); no chest pain, no fever/chills, no headaches, no shortness of breath or no weakness This is a 65-year-old female who presents with palpitations starting at 1:30 AM today. The patient was not doing anything in particular. She did feel her h eart race. It kept her up all night. She was trying to relax and read a book but it would not go away. On the way here she decided to take to an acids and when she arrived her symptoms seem to have improved. She no longer feels palpitations. The reason she took the antacids is because about a month ago she had chest pain and went to another hospital. She states that her physician thought it was acid reflux at the time although scheduled her for stress test in July. She was not having any chest discomfort or pain today but thought the antacids might help. She denies any fever, shortness of breath, leg swelling or pain, recent immobilization, history of PE, abdominal pain, vomitin g, diarrhea or urinary symptoms. The patient states that she has not been drinking caffeine recently and is not significantly stressed although her family is coming for a visit this weekend. She does state that she had a mild cough starting yesterday and has some sinus drainage. She was nauseated on the car ride here but has not vomited. Home Medications Medication Instructions Recorded Confirmed Type ascorbic acid (vitamin C) 500 mg 500 mg PO BID 09/27/19 06/19/21 History tablet cholecalciferol (vitamin D3) 50 50 mcg PO QAM cap 05/13/21 06/19/21 History mcg (2,000 unit) capsule amlodipine 5 mg tablet 5 mg PO HS 06/19/21 06/19/21 History ibuprofen 200 mg tablet 200 mg PO Q6H PRN 06/19/21 06/19/21 History naproxen sodium 220 mg tablet 220 mg PO Q12H PRN 06/19/21 06/19/21 History Allergies Allergy/AdvReac Type Severity Reaction Status Date / Time No Known Drug Allergies Allergy Verified 06/19/21 08:45 Past Med/Surg History Medical History Benign essential hypertension Cervical radiculopathy at C7 Cervicalgia Moderate mitral regurgitation Non-cardiac chest pain Rosacea Sarcoidosis of lymph nodes Surgical History H/O sinus surgery History of delivery Family History Other Coronary heart disease Social History Smoking Status: Never smoker Second Hand Exposure: No; Hx Alcohol Use: No Hx Substance Use: No Preferred Language: Gambian Communication Ability: Effective Licensed [employer] Required: No Beliefs That Will Affect Care: None marital status: Current Living Situation: Spouse and Family Current Living Situation Comment: and 2 adult children current occupational status: unemployed Feels Safe at Home: Yes Dental Care, Regularly: Yes Physical Activity Frequency: Other Seatbelt Use: always Sunscreen Use: Yes Assistive Devices: Glasses Review of Systems See HPI for pertinent positives & negatives. and A total of 10 systems reviewed and were otherwise negative Physical Exam Vital Signs Vital Signs - 24 hr 06/19/21 06:04 06/19/21 06:11 Temperature 36.6 C Temperature Source Temporal Artery Scan Pulse Rate 142 H Pulse Rate [Right] 141 H Respiratory Rate 18 20 Respiratory Effort / Characteristics Spontaneous Respiratory Depth Normal Blood Pressure 158/91 H Blood Pressure [Right Arm] 147/105 H Blood Pressure Mean 113 Blood Pressure Mean [Right Arm] 119 Pulse Oximetry 97 93 Oxygen Delivery Method Room Air Room Air Sepsis Recent Fever Within 48 Hours No Sepsis New/Unexplained Change in Mental Status No Sepsis Action Taken by Nursing No Action Required Constitutional: Vital signs reviewed. Eyes: Pupils are equal round reactive to light. Conjunctiva are noninjected. ENT: Pharynx is clear without erythema or exudate. Mucous membranes are moist. Neck supple without meningeal signs. Respiratory: Clear to auscultation bilaterally. Breath sounds are equal bilaterally. Cardiovascular: Regular rate and rhythm. No rubs or gallops. GI: Soft, nondistended and nontender. Bowel sounds are present. Musculoskeletal: No peripheral edema. No lower extremity tenderness. Integumentary: No cyanosis. or jaundice. Neurological: The patient is awake and alert. No focal deficits. Psychiatric: Normal affect. Not anxious appearing. Course Administered Medications Discontinued Medications Sodium Chloride (Nss) 500 mls @ 999 mls/hr IV .Q31M STA Stop: 06/19/21 07:14 Last Admin: 06/19/21 06:55 Dose: 999 mls/hr Documented by: [id number] Potassium Chloride (Potassium Chloride Crtab 20 Meq Tabcr) 40 meq PO NOW STA Stop: 06/19/21 10:25 Last Admin: 06/19/21 12:04 Dose: 40 meq Documented by: [id number] Medical Decision Making Differential Diagnosis SVT, sinus tachycardia, atrial fibrillation, metabolic derangement, infection Medical Records Attestation: I reviewed the patient's medical records. I did perform a limited focused review of portions of the patient's old chart on the electronic medical record. The patient was seen by her PCP May 13. She is complaining of fatigue at that time and she was taken off her metoprolol 50 mg twice daily. Home Medications Current Medication List: was personally reviewed by me Laboratory Data Attestation: I reviewed the patient's lab results. Result diagrams: 06/19/21 06:16 06/19/21 09:30 Lab Results 06/19/21 06/19/21 06/19/21 Range/Units 06:16 06:16 06:16 WBC 6.81 (4.8-10.8) K/uL RBC 4.99 (4.2-5.4) M/uL Hgb 14.6 (12.0-16.0) g/dL Hct 42.8 (37-47) % MCV 85.8 (80-100) fL MCH 29.3 (25-34) pg MCHC 34.1 (32-36) g/dL RDW Std Deviation 40.2 (36.4-46.3) fL RDW Coeff of Dio 12.9 (11.5-14.5) % Plt Count 229 (130-400) K/uL MPV 10.3 (7.4-10.4) fL Immature Gran % (Auto) 0.1 % Neut % (Auto) 76.5 % Lymph % (Auto) 15.7 % Ross % (Auto) 6.6 % Eos % (Auto) 0.7 % Baso % (Auto) 0.4 % Neut # (Auto) 5.20 (1.4-6.5) K/uL Lymph # (Auto) 1.07 L (1.2-3.4) K/uL Ross # (Auto) 0.45 (0.11-0.59) K/uL Eos # (Auto) 0.05 (0-0.5) K/uL Baso # (Auto) 0.03 (0-0.2) K/uL Immature Gran # (Auto) 0.01 (0.00-0.02) K/uL Sodium 136 (136-145) mmol/L Potassium (3.5-5.1) mmol/L Chloride 107 (98-107) mmol/L Carbon Dioxide 24 (21-32) mmol/L Anion Gap 5.0 (3-11) BUN 14 (7-18) mg/dl Creatinine 0.68 (0.6-1.2) mg/dl Est Cr Clr Drug Dosing 98.8 ml/min Est GFR ( Amer) 107.1 ml/min Est GFR (Non-Af Amer) 92.4 ml/min BUN/Creatinine Ratio 20.0 (10-20) Glucose 135 H (70-99) mg/dl Calcium 8.7 (8.5-10.1) mg/dl Magnesium (1.8-2.4) mg/dl Total Bilirubin 0.5 (0.2-1) mg/dl AST (15-37) U/L ALT 46 (12-78) U/L Alkaline Phosphatase 75 (45-117) U/L Troponin I < 0.015 (0-0.045) ng/ml Total Protein 8.4 H (6.4-8.2) gm/dl Albumin 4.1 (3.4-5.0) gm/dl Globulin 4.3 H (2.5-4.0) gm/dl Albumin/Globulin Ratio 1.0 (0.9-2) TSH 0.999 (0.300-4.500) uIu/ml Free T4 (0.8-1.6) ng/dl COVID-19 Eval Order SARS-CoV-2 (PCR) (Negative) 06/19/21 06/19/21 06/19/21 Range/Units 06:16 07:00 07:00 WBC (4.8-10.8) K/uL RBC (4.2-5.4) M/uL Hgb (12.0-16.0) g/dL Hct (37-47) % MCV (80-100) fL MCH (25-34) pg MCHC (32-36) g/dL RDW Std Deviation (36.4-46.3) fL RDW Coeff of Dio (11.5-14.5) % Plt Count (130-400) K/uL MPV (7.4-10.4) fL Immature Gran % (Auto) % Neut % (Auto) % Lymph % (Auto) % Ross % (Auto) % Eos % (Auto) % Baso % (Auto) % Neut # (Auto) (1.4-6.5) K/uL Lymph # (Auto) (1.2-3.4) K/uL Ross # (Auto) (0.11-0.59) K/uL Eos # (Auto) (0-0.5) K/uL Baso # (Auto) (0-0.2) K/uL Immature Gran # (Auto) (0.00-0.02) K/uL Sodium (136-145) mmol/L Potassium (3.5-5.1) mmol/L Chloride (98-107) mmol/L Carbon Dioxide (21-32) mmol/L Anion Gap (3-11) BUN (7-18) mg/dl Creatinine (0.6-1.2) mg/dl Est Cr Clr Drug Dosing ml/min Est GFR ( Amer) ml/min Est GFR (Non-Af Amer) ml/min BUN/Creatinine Ratio (10-20) Glucose (70-99) mg/dl Calcium (8.5-10.1) mg/dl Magnesium (1.8-2.4) mg/dl Total Bilirubin (0.2-1) mg/dl AST (15-37) U/L ALT (12-78) U/L Alkaline Phosphatase (45-117) U/L Troponin I (0-0.045) ng/ml Total Protein (6.4-8.2) gm/dl Albumin (3.4-5.0) gm/dl Globulin (2.5-4.0) gm/dl Albumin/Globulin Ratio (0.9-2) TSH (0.300-4.500) uIu/ml Free T4 1.12 (0.8-1.6) ng/dl COVID-19 Eval Order Covid19 at [facility] SARS-CoV-2 (PCR) NEGATIVE (Negative) 06/19/21 Range/Units 09:30 WBC (4.8-10.8) K/uL RBC (4.2-5.4) M/uL Hgb (12.0-16.0) g/dL Hct (37-47) % MCV (80-100) fL MCH (25-34) pg MCHC (32-36) g/dL RDW Std Deviation (36.4-46.3) fL RDW Coeff of Dio (11.5-14.5) % Plt Count (130-400) K/uL MPV (7.4-10.4) fL Immature Gran % (Auto) % Neut % (Auto) % Lymph % (Auto) % Ross % (Auto) % Eos % (Auto) % Baso % (Auto) % Neut # (Auto) (1.4-6.5) K/uL Lymph # (Auto) (1.2-3.4) K/uL Ross # (Auto) (0.11-0.59) K/uL Eos # (Auto) (0-0.5) K/uL Baso # (Auto) (0-0.2) K/uL Immature Gran # (Auto) (0.00-0.02) K/uL Sodium (136-145) mmol/L Potassium 3.6 (3.5-5.1) mmol/L Chloride (98-107) mmol/L Carbon Dioxide (21-32) mmol/L Anion Gap (3-11) BUN (7-18) mg/dl Creatinine (0.6-1.2) mg/dl Est Cr Clr Drug Dosing ml/min Est GFR ( Amer) ml/min Est GFR (Non-Af Amer) ml/min BUN/Creatinine Ratio (10-20) Glucose (70-99) mg/dl Calcium (8.5-10.1) mg/dl Magnesium 2.3 (1.8-2.4) mg/dl Total Bilirubin (0.2-1) mg/dl AST 22 (15-37) U/L ALT (12-78) U/L Alkaline Phosphatase (45-117) U/L Troponin I (0-0.045) ng/ml Total Protein (6.4-8.2) gm/dl Albumin (3.4-5.0) gm/dl Globulin (2.5-4.0) gm/dl Albumin/Globulin Ratio (0.9-2) TSH (0.300-4.500) uIu/ml Free T4 (0.8-1.6) ng/dl COVID-19 Eval Order SARS-CoV-2 (PCR) (Negative) Imaging Data Radiologist's Impression: Chest X-Ray 06/19/21 06:45 XR chest 1V portable HISTORY: Dysrhythmia COMPARISON: Chest 09/27/2019. FINDINGS: No pneumothorax or no pleural effusions. No new focal lung consolidations to suggest pneumonia. No evidence for pulmonary edema. The cardiac silhouette remains top normal in size. IMPRESSION: No significant change compared to the prior study. No acute process. ACT 112: Negative or not required by law. Electronically signed by: Fran Hein M.D. 06/19/2021 8:05 AM ECG Data Attestation: I personally reviewed and interpreted this ECG as follows: Indication: + palpitations and + tachycardia Rate (beats per minute): 145 Rhythm: + sinus tachycardia ECG Hughson: + Normal ECG ST segments: + Nonspecific ST abnormalities ECG Findings: no PVCs Additional Comments: Repeat twelve-lead EKG performed at 6:21 AM per my interpretation demonstrates normal sinus rhythm at a rate of 90 bpm. Hughson is 34. There are ST depressions in the anterior lateral leads and in the inferior leads as well. These are new since her EKG from September 27, 2019 MDM Narrative I did evaluate the patient as noted above. She is presenting with persistent tachycardia since 1:30 AM. She has no other complaints other than nausea. IV access was established. I did place an order for continuous cardiac monitoring. The monitor showed normal sinus rhythm at a rate of 76 bpm. I did order and personally review the patient's 12-lead EKG as described above. She initially had sinus tachycardia with a rate in the 140s. A repeat EKG was performed and she had normal sinus rhythm. She does have ST depressions in the anterior lateral and inferior leads. I did order and personally reviewed the images of the patient's chest x-ray as described above. I did order a urine analysis. I did order and review the patient's blood work as noted in the electronic medical record. CBC is unremarkable without leukocytosis or anemia. Troponin is negative. Thyroid function tests are within normal limits. On reassessment the patient remains in normal sinus rhythm. Her tachycardia is resolved. She will be hospitalized for further care and evaluation. The case was discussed with the hospitalist and family caseworker. Resident Physician Supervision Note: I did perform an independent evaluation and examination of this patient as described. I also saw this patient in conjunction with the resident, Dr. Jones, and guided management for the patient. Impression & Plan Tachycardia, Abnormal ECG Discharge Plan Visit Data Chief Complaint: Arrhythmia/Palpitations Stated Complaint: IRREG HEART BEAT ED Provider: Catrachito Diana ED Midlevel Provider: Catrachito Jones Discharge Problem: Tachycardia, Abnormal ECG Patient Disposition: Being Evaluated by Hospitalist
[2021-06-19 07:30] LABS: Basophils # (auto) 0.03 K/uL (0-0.2); Basophils % (auto) 0.4 %; Eosinophils # (auto) 0.05 K/uL (0-0.5); Eosinophils % (auto) 0.7 %; Hematocrit (blood only) 42.8 % (37-47); Hemoglobin 14.6 g/dL (12.0-16.0); Immature Granulocytes # (auto) 0.01 K/uL (0.00-0.02); Immature Granulocytes % (auto) 0.1 %; Lymphocytes # (auto) 1.07 K/uL (1.2-3.4); Lymphocytes % (auto) 15.7 %; Mean Corpuscular Hemoglobin 29.3 pg (25-34); Mean Corpuscular Hgb Conc 34.1 g/dL (32-36); Mean Corpuscular Volume 85.8 fL (80-100); Mean Platelet Volume 10.3 fL (7.4-10.4); Monocytes # (auto) 0.45 K/uL (0.11-0.59); Monocytes % (auto) 6.6 %; Neutrophils % (auto) 76.5 %; Platelet Count 229 K/uL (130-400); RDW Coefficient of Variation 12.9 % (11.5-14.5); RDW Standard Deviation 40.2 fL (36.4-46.3); Red Blood Count 4.99 M/uL (4.2-5.4); White Blood Count 6.81 K/uL (4.8-10.8)
[2021-06-19 07:32] LABS: Albumin Level 4.1 gm/dl (3.4-5.0); Bilirubin,Total 0.5 mg/dl (0.2-1); Calcium 8.7 mg/dl (8.5-10.1); Creatinine Clr Calc Pharmacy 98.8 ml/min; Est GFR (African American) 107.1 ml/min; Est GFR (Non-African American) 92.4 ml/min; Globulin 4.3 gm/dl (2.5-4.0); Thyroid Stimulating Hormone 0.999 uIu/ml (0.300-4.500); Total Protein 8.4 gm/dl (6.4-8.2)
--- NOTE | 2021-06-19 08:06 | XRay Report ---
XR chest 1V portable HISTORY: Dysrhythmia COMPARISON: Chest 09/27/2019. FINDINGS: No pneumothorax or no pleural effusions. No new focal lung consolidations to suggest pneumo tiffani. No evidence for pulmonary edema. The cardiac silhouette remains top normal in size. IMPRESSION: No significant change compared to the prior study. No acute process. ACT 112: Negative or not required by law. Electronically signed by: Fran Hein M.D. 06/19/2021 8:05 AM
[2021-06-19 09:53] LABS: Potassium 3.6 mmol/L (3.5-5.1)
[2021-06-19 09:58] LABS: Magnesium 2.3 mg/dl (1.8-2.4)
[2021-06-19] MEDS ORDERED: POTASSIUM CHLORIDE CRTAB 20 MEQ TABCR PO STA (10:24)
--- NOTE | 2021-06-19 10:42 | Emergency Department Note ---
ED Visit Note This patient was seen in concert with Dr. Diana and we discussed and agreed upon the history, physical, assessment, and plan. See attending's note for details. . Resident Activity Tracking Resident Involvement: Resident Care Provided Care Provided: Adult ED
--- NOTE | 2021-06-19 11:46 | History & Physical Report ---
Date of Service June 19, 2021 Assessment & Plan (1) Palpitations: Plan: As above- self resolved in the EMD without pharmacological or phsycial interventions - Consider placing back on low dose metoprolol- follow HR and BP overnight - PRN IV dosing for HR >120 sustained - K replaced at 3.6 with 40 MEQ - Mag normal - Associated with nausea and fatigue (2) Abnormal ECG: Plan: Non specific changes at rest, ST depression inferior lateral leads with elevated HR - Follow Troponin and ECG q6 hours - BB as per HPI - Daily ASA 81 mg started - Lipid profile in the morning - Cardiology consulted for risk stratification regarding history of symptoms and her risks - EST- ECHO vs. evaluation with cath or other - NPO after midnight (3) HTN (hypertension): Plan: As per HPI, previously on Metoprol was recently changed to Amlodipine secondary to reports of fatigue and elevated BP at home - Adjust while in house if desired/needed- defer to rounding team and consultive service. (4) Mitral regurgitation: Plan: Moderate on EST Echo 2018 - patient asymptomatic - appears euvolemic on exam and non limiting at this time (5) Osteoarthritis: Plan: Ibuprophen, Tylenol, and Naprosyn per pateint - She does endorse that she alternates these and takes with food as she is aware of this effect on stomach and GERD (6) GERD (gastroesophageal reflux disease): Plan: Not routinely on PPI and self limiting History of Present Illness Primary Care Provider: Farhat Urias MD 65 YOF with past medical history of: HTN, HLD, palpitations- PVCs, GERD, MR, sarcoidosis (lymph node biopsy ~2012 [place]). Patient comes to the emergency room today after being awoke at 1-2 in the morning with feeling as her heart was racing and palpitations, she checked her HR and noted int was >120BPM. She got up got a drink of water and tried to wait it out, but it did not improve. When she got to the EMD HR was noted sinus in the 140s and spontaneously broke. The patient had some associated nausea and fatigue on the way to the EMD, but has si nce passed. Patient denies any chest pain or dyspnea, sweating or radiation of any pain, she also denies any symptoms when she is walking up and down steps at home or any other activity restrictions. The patient does endorse that she had substernal chest pain ~[id number] that was 10/10 in the center of her chest and went to [facility] and subsequently was to have a stress ECHO scheduled for July. In the [facility] the patient had routine labs done, CXR and ECG performed. Her Troponin I was <01.15 CXR is negative, and her ECG with some ST segment depression her HR inferior and lateral leads with HR at 145 and with normal heart rate still with some non-specific ST changes to lateral anterior compared to her previous. The patient is currently rate controlled and asymptomatic. She does endorse some minor stressors as she is planning triston having many of her kids come visit in the upcoming weeks. Patient will be observed overnight for trending of her ECG, troponin, HR and rhythm monitoring with PRN Lopressor available as needed for HR >120. Patient has a history of PVCs noted through her EST in 2018 as well as palpitations when she was and shortly after giving ~30 years ago. For her EST in 2018 it was noted that she reached 95% max heart rate and was associated with some chest pain prior, during, and after with PVCs, but without any ischemic changes noted. The study was stopped secondary to dyspnea and significant hypertension. She was started on Metoprolol at that time. She was recently seen by her PCP in May for hypertension that she notices while checking her blood pressures at home and for fatigue. It was thought at that time that her Metoprolol may have been causing her fatigue, and subsequently it was weaned down and discontinued and was changed to amlodipine for her HTN. Patient has risk factors of mild obesity, HTN, and NSAID use. Her family history is significant for [place] in father and her mother has stents, both parents have HTN and HLD. Patient received her COVID vaccine and her COVID test is NEGATIVE on admission. Allergies Allergy/AdvReac Type Severity Reaction Status Date / Time No Known Drug Allergies Allergy Verified 06/19/21 08:45 Home Medications Medication Instructions Recorded Confirmed Type ascorbic acid (vitamin C) 500 mg 500 mg PO BID 09/27/19 06/19/21 History tablet cholecalciferol (vitamin D3) 50 50 mcg PO QAM cap 05/13/21 06/19/21 History mcg (2,000 unit) capsule amlodipine 5 mg tablet 5 mg PO HS 06/19/21 06/19/21 History ibuprofen 200 mg tablet 200 mg PO Q6H PRN 06/19/21 06/19/21 History naproxen sodium 220 mg tablet 220 mg PO Q12H PRN 06/19/21 06/19/21 History aspirin 81 mg tablet,delayed 81 mg PO QAM #90 tab 06/20/21 Rx release Past Med/Surg History Medical History Benign essential hypertension Cervical radiculopathy at C7 Cervicalgia Moderate mitral regurgitation Non-cardiac chest pain Rosacea Sarcoidosis of lymph nodes Surgical History H/O sinus surgery History of delivery Family History Other Coronary heart disease Social History Smoking Status: Never smoker Second Hand Exposure: No; Hx Alcohol Use: No Hx Substance Use: No Preferred Language: Kinyarwanda Communication Ability: Effective Hadoop Admin Required: No Beliefs That Will Affect Care: None marital status: Current Living Situation: Spouse and Family Current Living Situation Comment: with current occupational status: unemployed Feels Safe at Home: Yes Dental Care, Regularly: Yes Physical Activity Frequency: Other Seatbelt Use: always Sunscreen Use: Yes Assistive Devices: Glasses Review of Systems Review of Systems: REVIEW OF SYSTEMS: Constitutional: No fever, sweats or chills Eyes: No diplopia, no worsening or blurred vision ENT: normal hearing, no trouble swallowing Respiratory: No cough, sputum, dyspnea at rest or on exertion Cardiovascular: (+) fast heart rate, palpitations, fatigue, No chest pain, tightness or palpitations Abdomen: No pain, nausea, vomiting, diarrhea or constipation Musculoskeletal: (+) joint pain, RT hip, neck, RT ankle, calf pain, swelling Neurologic: No weakness, numbness/tingling, or balance problems Psychiatric: No anxiety or depression Skin: No rash or itch Physical Exam Physical Exam: PHYSICAL EXAM: General: awake, alert, no apparent distress Head: Normocephalic, atraumatic ENT: PERRL, EOMI, no pharyngeal exudate, mucous membranes moist Neuro: AAO x 3, speech clear and appropriate, strength intact bilaterally 5/5, sensation intact and equal all extremities and dermatomes, no pronator drift Chest: equal rise and fall of the chest, no accessory muscle use, no heaves or thrills, Clear to auscultation, on room air, Cardiac: Regular rate and rhythm, telemetry reviewed-currently NSR no ventricular ectopy- PAC noted, skin warm dry, cap refill <3 seconds, peripheral pulses +2 no JVD, Grade II systolic murmur, no edema GI: NABS x 4 quadrants, soft, nontender to palpation, no rebound, guarding or tenderness : Spontaneously voiding, no pain, no CVA tenderness, Extremities: Normal inspection, no peripheral edema or erythema, calfs nontender to palpation Psych: Normal mood and affect Skin: no rash or erythema Results & Data Results & Data ([facility]) Vital Signs (Past 12 Hours) Vital Signs Temp Pulse Pulse Resp BP BP Pulse Ox 06/19/21 06:11 141 H 20 147/105 H 93 06/19/21 06:04 36.6 C 142 H 18 158/91 H 97 Laboratory Results Abnormal lab results 06/19/21 06/19/21 Range/Units 06:16 06:16 Lymph # (Auto) 1.07 L (1.2-3.4) K/uL Glucose 135 H (70-99) mg/dl Total Protein 8.4 H (6.4-8.2) gm/dl Globulin 4.3 H (2.5-4.0) gm/dl Diagnostic Findings Chest X-Ray 06/19/21 06:45 XR chest 1V portable HISTORY: Dysrhythmia COMPARISON: Chest 09/27/2019. FINDINGS: No pneumothorax or no pleural effusions. No new focal lung consolidations to suggest pneumonia. No evidence for pulmonary edema. The cardiac silhouette remains top normal in size. IMPRESSION: No significant change compared to the prior study. No acute process. ACT 112: Negative or not required by law. Electronically signed by: Fran Hein M.D. 06/19/2021 8:05 AM Medications Administered Home Medications ascorbic acid (vitamin C) 500 mg tablet 500 mg PO BID 09/27/19 [History Confirmed 06/19/21] cholecalciferol (vitamin D3) 50 mcg (2,000 unit) capsule 50 mcg PO QAM cap 05/13/21 [History Confirmed 06/19/21] amlodipine 5 mg tablet 5 mg PO HS 06/19/21 [History Confirmed 06/19/21] ibuprofen 200 mg tablet 200 mg PO Q6H PRN 06/19/21 [History Confirmed 06/19/21] naproxen sodium 220 mg tablet 220 mg PO Q12H PRN 06/19/21 [History Confirmed 06/19/21] Discontinued Medications Sodium Chloride (Nss) 500 mls @ 999 mls/hr IV .Q31M STA Stop: 06/19/21 07:14 Last Admin: 06/19/21 06:55 Dose: 999 mls/hr Documented by: [id number] ECG Additional Comments: 06:11 -Sinus tachycardia ST & T wave abnormality, consider inferolateral ischemia Abnormal ECG When compared with ECG of 27-SEP-2019 12:37, Vent. rate has increased BY [address] now depressed in Anterolateral leads T wave inversion now evident in Inferior leads T wave inversion now evident in Lateral leads 06- Sinus rhythm with Premature atrial complexes Nonspecific ST and T wave abnormality Abnormal ECG When compared with ECG of 19-JUN-2021 06:11, (unconfirmed) Premature atrial complexes are now Present Vent. rate has decreased BY 55 BPM Nonspecific T wave abnormality has replaced inverted T waves in Inferior leads T wave inversion less evident in Lateral leads Code Status & VTE Plan Code Status CODE: FULL VTE: SCD's, Lovenox 40mg sub q q24 VTE Prophylaxis Plan VTE Prophylaxis will be ordered: Yes Supervising Physician Co-Signing Physician Notes Attending addendum: I have physically seen this patient, have supervised the ODALIS's activities, and agree with the H&P unless as otherwise noted. Assessment and Plan: Abnormal EKG/palpitations/hypertension/mitral regurgitation- The patient will be admitted to telemetry for serial cardiac enzymes, serial EKG's, cardiac rhythm monitoring and a 2-D echocardiogram with Dopplers. Lopressor 5 mg IV every 4 hours as needed heart rate greater than 120 Potassium 3.6 upon admission, given 40 mEq p.o. in the ED, repeat labs in a.m. magnesium normal Start aspirin 81 mg daily Check a fasting lipid panel and hemoglobin A1c Consult cardiology Remaining orders and notations as noted PG Care Time/CCT Total # of Minutes Spent Total Time Spent with Patient: Total time spent is greater than 50% in coordination of care (as documented) at patient's floor/unit and/or counseling patient: Coding Level of Care Code INT OBSERVATION CARE 70M LVL 3 Diagnoses Palpitations R00.2 Mitral regurgitation I34.0 Osteoarthritis M19.90 GERD (gastroesophageal reflux disease) K21.9 HTN (hypertension) I10 Abnormal ECG R94.31
--- NOTE | 2021-06-19 13:21 | Electrocardiogram Report ---
Test Reason : Blood Pressure : / mmHG Vent. Rate : 145 BPM Atrial Rate : 145 BPM P-R Int : 170 ms QRS Dur : 096 ms QT Int : 284 ms P-R-T Axes : 052 040 234 degrees QTc Int : 441 ms Supraventricular tachycardia Abnormal ECG When compared with ECG of 27-SEP-2019 12:37, Vent. rate has increased BY 88 BPM SVT has replaced sinus rhythm T wave inversion now evident in Inferior leads T wave inversion now evident in Lateral leads Confirmed by Epifanio Reynolds ([id number]) on 06/19/2021 1:20:59 PM Referred By: Confirmed By:Anthony Reynolds
--- NOTE | 2021-06-19 13:22 | Electrocardiogram Report ---
Test Reason : Blood Pressure : / mmHG Vent. Rate : 090 BPM Atrial Rate : 090 BPM P-R Int : 144 ms QRS Dur : 090 ms QT Int : 380 ms P-R-T Axes : 054 034 -58 degrees QTc Int : 464 ms Sinus rhythm with Premature atrial complexes Nonspecific ST and T wave abnormality Abnormal ECG When compared with ECG of 19-JUN-2021 06:11, (unconfirmed) Premature atrial complexes are now Present The rhythm is more clearly sinus Vent. rate has decreased BY 55 BPM Nonspecific T wave abnormality has replaced inverted T waves in Inferior leads T wave inversion less evident in Lateral leads Confirmed by Epifanio Reynolds ([id number]) on 06/19/2021 1:22:06 PM Referred By: REFERRED SELF Confirmed By:Anthony Reynolds
[2021-06-19 14:25] LABS: Prothrombin Time 10.3 Seconds (9.0-12.0)
[2021-06-19] MEDS ORDERED: POLYETHYLENE (MIRALAX) 17 GM PACK PO PRN (16:07)
[2021-06-19] MEDS ORDERED: ACETAMINOPHEN 325 MG TAB PO PRN (16:07)
[2021-06-19] MEDS ORDERED: METOPROLOL TARTRATE 1 MG/ML VIAL IV PRN (16:07)
[2021-06-19] MEDS: ASPIRIN 81 MG ECTAB PO SCH (16:47)
[2021-06-19] MEDS ORDERED: ENOXAPARIN INJ 40 MG/0.4 ML SYR SQ SCH (17:00)
[2021-06-19] MEDS ORDERED: amLODIPine BESYLATE 5 MG TAB PO SCH (21:00)
[2021-06-20 07:24] LABS: Basophils # (auto) 0.02 K/uL (0-0.2); Basophils % (auto) 0.4 %; Eosinophils # (auto) 0.16 K/uL (0-0.5); Eosinophils % (auto) 2.9 %; Hematocrit (blood only) 40.4 % (37-47); Hemoglobin 13.7 g/dL (12.0-16.0); Lymphocytes # (auto) 1.96 K/uL (1.2-3.4); Mean Corpuscular Hemoglobin 29.1 pg (25-34); Mean Corpuscular Hgb Conc 33.9 g/dL (32-36); Mean Corpuscular Volume 85.8 fL (80-100); Mean Platelet Volume 9.9 fL (7.4-10.4); Monocytes # (auto) 0.58 K/uL (0.11-0.59); Monocytes % (auto) 10.7 %; Neutrophils # (auto) 2.72 K/uL (1.4-6.5); Platelet Count 205 K/uL (130-400); RDW Coefficient of Variation 12.8 % (11.5-14.5); RDW Standard Deviation 40.5 fL (36.4-46.3); Red Blood Count 4.71 M/uL (4.2-5.4); White Blood Count 5.44 K/uL (4.8-10.8)
[2021-06-20 07:57] LABS: BUN Creatinine Ratio 21.9 (10-20); Blood Urea Nitrogen 16 mg/dl (7-18); Calcium 8.8 mg/dl (8.5-10.1); Carbon Dioxide 26 mmol/L (21-32); Chloride 108 mmol/L (98-107); Creatinine Clr Calc Pharmacy 94.6 ml/min; Est GFR (African American) 104.3 ml/min; Glucose 96 mg/dl (70-99); Magnesium 2.4 mg/dl (1.8-2.4); Potassium 3.8 mmol/L (3.5-5.1); Sodium 138 mmol/L (136-145); Triglycerides 104 mg/dl (0-150); VLDL Cholesterol 21 mg/dl
[2021-06-20 08:02] LABS: Chol HDL Ratio 5; Cholesterol 191 mg/dl (0-200); HDL Cholesterol 36 mg/dl; LDL Cholesterol Calculated 134 mg/dl; Troponin I < 0.015 ng/ml (0-0.045)
--- NOTE | 2021-06-20 08:11 | Hospitalist Progress Note ---
Date of Service June 20, 2021 Assessment & Plan (1) Palpitations: Plan: svt was seen on ecg - PRN IV metoprolol dosing for HR >120 sustained - K replaced at 3.6 with 40 MEQ - Mag normal -thyroid normal (2) Abnormal ECG: Plan: Non specific changes at rest, ST depression inferior lateral leads with elevated HR - negative troponin x5 - change amlodipine to coreg - Daily ASA 81 mg started - Lipid profile tc 191 ldl 134 - Cardiology consulted for risk stratification regarding history of symptoms and her risks - EST- ECHO vs. evaluation with cath or other - NPO after midnight except meds (3) HTN (hypertension): Plan: As per HPI, previously on Metoprol was recently changed to Amlodipine secondary to reports of fatigue and elevated BP at home will try coreg - Adjust while in house if desired/needed- defer to rounding team and consultive service. (4) Mitral regurgitation: Plan: Moderate on EST Echo 2018 - patient asymptomatic - appears euvolemic on exam and non limiting at this time (5) Osteoarthritis: Plan: Ibuprophen, Tylenol, and Naprosyn per pateint - She does endorse that she alternates these and takes with food as she is aware of this effect on stomach and GERD (6) GERD (gastroesophageal reflux disease): Plan: Not routinely on PPI and self limiting Admission and Anticipated Discharge Date Admission Date: June 19, 2021 Results & Data Results & Data ([facility]) Vital Signs (Past 12 Hours) Vital Signs Temp Pulse Pulse Resp BP BP Pulse Ox 06/20/21 07:00 97.9 F 68 18 136/82 95 06/20/21 03:09 97.9 F 87 16 146/83 H 97 06/20/21 01:01 86 06/19/21 23:11 98.2 F 73 18 159/84 H 96 PG Care Time/CCT Total # of Minutes Spent Total Time Spent with Patient: Total time spent is greater than 50% in coordination of care (as documented) at patient's floor/unit and/or counseling patient: Coding Diagnoses Palpitations R00.2 Abnormal ECG R94.31 HTN (hypertension) I10 Mitral regurgitation I34.0 Osteoarthritis M19.90 GERD (gastroesophageal reflux disease) K21.9
[2021-06-20] MEDS ORDERED: carvediloL 3.125 MG TAB PO SCH (09:00)
[2021-06-20] MEDS: ASPIRIN 81 MG ECTAB PO SCH (10:12)
--- NOTE | 2021-06-20 12:18 | Cardiology Consultation ---
Date of Consultation June 20, 2021 Assessment & Plan (1) Tachycardia: Review of her EKG at the time of presentation suggests a reentrant SVT. 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 She describes some symptoms over the course of several years. This was the most extended episode in duration. However, she had few other associated symptoms. We discussed options for treatment including no treatment, continued observation, medical therapy or catheter based treatment. At this point, she wishes to simply monitor herself for additional symptoms. Unclear if she will have frequent or more sustained episodes in the future. We did discussed maneuvers to try when she has an episode in the hopes of termin ation. (2) Abnormal ECG: She had some very minor and nonspecific ST segment changes. She did not present with any symptoms of ischemic heart disease, coronary insufficiency or angina. Despite an extended episode of tachycardia and no elevation in her cardiac biomarkers. Our prior stress testing was not indicative of ischemia, he was likely suboptimal given the poor exercise tolerance. She is already scheduled for an outpatient stress test. (3) Mitral regurgitation: Moderate on echocardiogram in 2019. This will be reassessed at the time of her stress testing. (4) Non-cardiac chest pain: Her symptoms of severe chest discomfort experienced previously were not c ardiac in nature. Despite extended symptoms no elevation in cardiac biomarkers. No current symptoms suggestive of coronary insufficiency or angina. At this point standard risk factor modification according to published guidelines is recommended. History of Present Illness Reason for Consultation: Tachycardia, abnormal EKG Requesting Physician: Edilma Attending Physician: Catrachito France MD History of Present Illness The patient is a 65-year-old woman without a known history of cardiac disease who noticed the onset of a rapid heartbeat around 1:00 a.m. on the day of admission. The patient states that she had few other associated symptoms. She denied dyspnea or chest discomfort. She did not have dizziness or lightheadedness. She did not feel presyncopal. She ambulated around her house for while but based on the persistent nature of her elevated heart rate she eventually came to the emergency room for evaluation. She was noted to be in a tachycardia but shortly after arrival spontaneously converted to a normal sinus rhythm. The patient believe she has had some of these symptoms previously. Over many years she has had brief episodes lasting a few minutes in duration. Again, no other associated symptoms. She was treated previously for PVCs but did not recall being symptomatic from the PVCs. This treatment involved metoprolol which produced some element of fatigue. Recently, the patient also had experienced an episode of severe chest discomfort. She describes this as substernal in nature without radiation. It occurred while driving. She sought medical attention at the [facility] and after emergency room evaluation was discharged. She is scheduled for outpatient stress testing as a result. She is an otherwise active individual. She does not exercise regularly but does not describe symptoms associated with activity. No exertional chest pain or dyspnea. No sense of palpitation. She claims to sleep well with the exception of frequent urination. No orthopnea or paroxysmal nocturnal dyspnea. Allergies Allergy/AdvReac Type Severity Reaction Status Date / Time No Known Drug Allergies Allergy Verified 06/19/21 08:45 Home Medications Medication Instructions Recorded Confirmed Type ascorbic acid (vitamin C) 500 mg 500 mg PO BID 09/27/19 06/19/21 History tablet cholecalciferol (vitamin D3) 50 50 mcg PO QAM cap 05/13/21 06/19/21 History mcg (2,000 unit) capsule amlodipine 5 mg tablet 5 mg PO HS 06/19/21 06/19/21 History ibuprofen 200 mg tablet 200 mg PO Q6H PRN 06/19/21 06/19/21 History naproxen sodium 220 mg tablet 220 mg PO Q12H PRN 06/19/21 06/19/21 History aspirin 81 mg tablet,delayed 81 mg PO QAM #90 tab 06/20/21 Rx release Patient History Medical History Benign essential hypertension Cervical radiculopathy at C7 Cervicalgia Moderate mitral regurgitation Non-cardiac chest pain Rosacea Sarcoidosis of lymph nodes Surgical History H/O sinus surgery History of delivery Family History Other Coronary heart disease Social History Smoking Status: Never smoker Second Hand Exposure: No; Hx Alcohol Use: No Hx Substance Use: No Preferred Language: Syriac Communication Ability: Effective Cream Maker Required: No Beliefs That Will Affect Care: None marital status: Current Living Situation: Spouse and Family Current Living Situation Comment: with current occupational status: unemployed Other Information That Helps Us Care for You: No Feels Safe at Home: Yes Safety Concerns: Feels Safe At This Time Dental Care, Regularly: Yes Physical Activity Frequency: Other Seatbelt Use: always Sunscreen Use: Yes Assistive Devices: Glasses Review of Systems Review of Systems: All systems reviewed & are unremarkable except as noted in HPI & below Physical Exam Physical Exam: She is alert and oriented x3. Mood affect appear normal. She answered all questions appropriately. HEENT: Sclerae are anicteric. Pupils are equal and reactive to light and accommodation. Extraocular movements were intact. Neuro: Cranial nerves intact Neck: Examination of the submandibular region did not reveal any significant lymphadenopathy. Carotids are palpable bilaterally and free of bruits on auscultation. There was no evidence of jugular venous distention. The thyroid was not enlarged. Lungs: Lungs are clear to auscultation bilaterally. There are no rales wheezes or rhonchi. She has normal respiratory effort without use of accessory muscles. There is normal pulmonary excursion. Cardiac: The rhythm was regular. S1 and S2 were normal. There are no murmurs on examination. The PMI was not markedly displaced on palpation. Extremities: Patient has bilateral radial pulses that are equal in intensity. There is no evidence cyanosis or clubbing. There was no evidence of significant peripheral edema bilaterally. Skin: There are no rashes noted on examination today. Results & Data ([facility]) Vital Signs (Past 12 Hours) Vital Signs Temp Pulse Pulse Resp BP BP Pulse Ox 06/20/21 12:01 36.8 C 71 20 139/81 94 06/20/21 07:00 36.6 C 68 18 136/82 95 06/20/21 03:09 36.6 C 87 16 146/83 H 97 06/20/21 01:01 86 Laboratory Results Abnormal Lab Results 06/19/21 06/19/21 06/19/21 14:06 14:06 19:24 WBC RBC Hgb Hct MCV MCH MCHC RDW Std Deviation RDW Coeff of Dio Plt Count MPV Immature Gran % (Auto) Neut % (Auto) Lymph % (Auto) [place] % (Auto) Eos % (Auto) Baso % (Auto) Neut # (Auto) Lymph # (Auto) [place] # (Auto) Eos # (Auto) Baso # (Auto) Immature Gran # (Auto) PT 10.3 INR 1.0 Sodium Potassium Chloride Carbon Dioxide Anion Gap BUN Creatinine Est Cr Clr Drug Dosing Est GFR ( Amer) Est GFR (Non-Af Amer) BUN/Creatinine Ratio Glucose Calcium Magnesium Troponin I 0.017 < 0.015 Triglycerides Cholesterol LDL Cholesterol, Calc VLDL Cholesterol, Calc HDL Cholesterol Cholesterol/HDL Ratio 06/20/21 06/20/21 06/20/21 00:19 07:02 07:02 WBC 5.44 RBC 4.71 Hgb 13.7 Hct 40.4 MCV 85.8 MCH 29.1 MCHC 33.9 RDW Std Deviation 40.5 RDW Coeff of Dio 12.8 Plt Count 205 MPV 9.9 Immature Gran % (Auto) 0.0 Neut % (Auto) 50.0 Lymph % (Auto) 36.0 [place] % (Auto) 10.7 Eos % (Auto) 2.9 Baso % (Auto) 0.4 Neut # (Auto) 2.72 Lymph # (Auto) 1.96 [place] # (Auto) 0.58 Eos # (Auto) 0.16 Baso # (Auto) 0.02 Immature Gran # (Auto) 0.00 PT INR Sodium 138 Potassium 3.8 Chloride 108 H Carbon Dioxide 26 Anion Gap 4.0 BUN 16 Creatinine 0.71 Est Cr Clr Drug Dosing 94.6 Est GFR ( Amer) 104.3 Est GFR (Non-Af Amer) 90.0 BUN/Creatinine Ratio 21.9 H Glucose 96 Calcium 8.8 Magnesium 2.4 Troponin I < 0.015 < 0.015 Triglycerides 104 Cholesterol 191 LDL Cholesterol, Calc 134 VLDL Cholesterol, Calc 21 HDL Cholesterol 36 Cholesterol/HDL Ratio 5 Diagnostic Findings Exercise echocardiogram performed 09/27/2019. No evidence of inducible ischemia. However, the patient only exercised for 3 minutes. She was noted to have moderate mitral regurgitation. She had a hypertensive response to exercise. PG Care Time/CCT Total # of Minutes Spent Total Time Spent with Patient: Total time spent is greater than 50% in coordination of care (as documented) at patient's floor/unit and/or counseling patient: Coding Level of Care Code 74869 Initial Inpt Care Lvl 3 Diagnoses Tachycardia R00.0 Abnormal ECG R94.31 Mitral regurgitation I34.0 Non-cardiac chest pain R07.89
--- NOTE | 2021-06-20 17:32 | Electrocardiogram Report ---
Test Reason : Blood Pressure : / mmHG Vent. Rate : 069 BPM Atrial Rate : 069 BPM P-R Int : 128 ms QRS Dur : 096 ms QT Int : 444 ms P-R-T Axes : 040 037 -07 degrees QTc Int : 475 ms Normal sinus rhythm Nonspecific ST and T wave abnormality Abnormal ECG When compared with ECG of 19-JUN-2021 06:21, Premature atrial complexes are no longer Present Confirmed by Epifanio Reynolds ([id number]) on 06/20/2021 5:32:08 PM Referred By: REFERRED SELF Confirmed By:Anthony Reynolds
--- NOTE | 2021-06-20 17:41 | Electrocardiogram Report ---
Test Reason : Blood Pressure : / mmHG Vent. Rate : 070 BPM Atrial Rate : 070 BPM P-R Int : 092 ms QRS Dur : 092 ms QT Int : 450 ms P-R-T Axes : -16 028 020 degrees QTc Int : 486 ms Sinus rhythm Nonspecific ST abnormality Abnormal ECG When compared with ECG of 19-JUN-2021 14:06, (unconfirmed) No significant change was found Confirmed by Epifanio Reynolds ([id number] on 06/20/2021 5:41:25 PM Referred By: REFERRED SELF Confirmed By:Anthony Reynolds
--- NOTE | 2021-06-20 19:11 | Discharge Summary ---
Date of Service June 20, 2021 Admission HPI Per Admitting Provider 65 YOF with past medical history of: HTN, HLD, palpitations- PVCs, GERD, MR, sarcoidosis (lymph node biopsy ~2012 [place]). Patient comes to the emergency room today after being awoke at 1-2 in the morning with feeling as her heart was racing and palpitations, she checked her HR and noted int was >120BPM. She got up got a drink of water and tried to wait it out, but it did not improve. When she got to the EMD HR was noted sinus in the 140s and spontaneously broke. The patient had some associated nausea and fatigue on the way to the [facility], but has since passed. Patient denies any chest pain or dyspnea, sweating or radiation of any pain, she also denies any symptoms when she is walking up and down steps at home or any other activity restrictions. The patient does endorse that she had substernal chest pain ~60Etcm50 that was 10/10 in the center of her chest and went to [facility] and subsequently was to have a stress ECHO scheduled for July. In the [facility] the patient had routine labs done, CXR and ECG performed. Her Troponin I was <01.15 CXR is negative, and her ECG with some ST segment depression her HR inferior and lateral leads with HR at 145 and with normal heart rate still with some non-specific ST changes to lateral anterior compared to her previous. The patient is currently rate controlled and asymptomatic. She does endorse some minor stressors as she is planning tr[place] having many of her kids come visit in the upcoming weeks. Patient will be observed overnight for trending of her ECG, troponin, HR and rhythm monitoring with PRN Lopressor available as needed for HR >120. Patient has a history of PVCs noted through her EST in 2018 as well as palpitations when she was and shortly after giving ~30 years ago. For her EST in 2018 it was noted that she reached 95% max heart rate and was associated with some chest pain prior, during, and after with PVCs, but without any ischemic changes noted. The study was stopped secondary to dyspnea and significant hypertension. She was started on Metoprolol at that time. She was recently seen by her PCP in May for hypertension that she notices while checking her blood pressures at home and for fatigue. It was thought at that time that her Metoprolol may have been causing her fatigue, and subsequently it was weaned down and discontinued and was changed to amlodipine for her HTN. Patient has risk factors of mild obesity, HTN, and NSAID use. Her family history is significant for LA in father and her mother has stents, both parents have HTN and HLD. Patient received her COVID vaccine and her COVID test is NEGATIVE on admission. Principal Diagnosis SVT resolved Discharge Exam The patient appeared well Vital signs as documented. Lungs are clear to auscultation and appear unlabored Cardiac exam, Rhythm is regular.. No murmurs, rubs or gallops. Abdominal exam reveals normal bowel sounds, soft non tender, no masses Extremities are nonedematous and both pedal pulses are normal. Neurologic exam is alert and oriented, no focal loss of strength or sensation Skin is without bruises or rashes Psychologically is without concerns for anxiety or depression. Discharge Data Allergies Allergy/AdvReac Type Severity Reaction Status Date / Time No Known Drug Allergies Allergy Verified 06/19/21 08:45 Consultations 06/19/21 10:33 ED Decision to Admit Stat 06/19/21 16:07 Consult Cardiology Routine (1) Tachycardia: Review of her EKG at the time of presentation suggests a reentrant SVT. 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 She describes some symptoms over the course of several years. This was the most extended episode in duration. However, she had few other associated symptoms. We discussed options for treatment including no treatment, continued observation, medical therapy or catheter based treatment. At this point, she wishes to simply monitor herself for additional symptoms. Unclear if she will have frequent or more sustained episodes in the future. We did discussed maneuvers to try when she has an episode in the hopes of termination. (2) Abnormal ECG: She had some very minor and nonspecific ST segment changes. She did not present with any symptoms of ischemic heart disease, coronary insufficiency or angina. Despite an extended episode of tachycardia and no elevation in her cardiac biomarkers. Our prior stress testing was not indicative of ischemia, he was likely suboptimal given the poor exercise tolerance. She is already scheduled for an outpatient stress test. (3) Mitral regurgitation: Moderate on echocardiogram in 2019. This will be reassessed at the time of her stress testing. (4) Non-cardiac chest pain: Her symptoms of severe chest discomfort experienced previously were not cardiac in nature. Despite extended symptoms no elevation in cardiac biomarkers. No current symptoms suggestive of coronary insufficiency or angina. At this point standard risk factor modification according to published guidelines is recommended. Hospital Course (1) Palpitations: svt was seen on ecg Cardiology visit the patient recommends continuing outpatient work-up doing stress testing actions were given to the patient and she chose to go home with outpatient work-up according to note from Dr. Rakesh Reynolds - K replaced at 3.6 with 40 MEQ - Mag normal -thyroid normal (2) Abnormal ECG: Non specific changes at rest, cardiology is not feel this is indicative of ischemic changes - negative troponin x5 -Neurology recommended continuing amlodipine no change to carvedilol - Daily ASA 81 mg started - Lipid profile tc 191 ldl 134 (3) HTN (hypertension): As per HPI, previously on Metoprol was recently changed to Amlodipine secondary to reports of fatigue and elevated BP at home Continues on amlodipine (4) Mitral regurgitation: Moderate on EST Echo 2018 - patient asymptomatic - appears euvolemic on exam and non limiting at this time (5) Osteoarthritis: Ibuprophen, Tylenol, and Naprosyn per pateint - She does endorse that she alternates these and takes with food as she is aware of this effect on stomach and GERD (6) GERD (gastroesophageal reflux disease): Not routinely on PPI and self limiting Total Time Total Time Spent Total Time Spent (In Minutes): It required less than 30 minutes to prepare this patient for discharge Discharge Plan Discharge Items Patient Disposition: Home - Self-Care Reason For Visit: [employer] Discharge Diagnosis: supraventricular tachycardia Activity: Per Instructions section Activity Comment: no intentional exercise until you have your scheduled stress test Non-emergency contact: Primary Care Provider Call non-emergency contact if: you have any medication questions and your symptoms worsen Follow-up/Referrals: Farhat Urias MD [Primary Care Provider] - Diet: Regular Addtl Attending Provider Instructions: Please keep your regularly scheduled outpt appointment for cardiac stress test always return if you have any concerns Pending Studies at Discharge: No Stand-Alone Forms: My [employer], Smoking Cessation Medications and DC Order Prescriptions: New aspirin 81 mg Tablet,Delayed Release (Dr/Ec) 81 mg PO QAM Qty: 90 RF: 0 Continued ascorbic acid (vitamin C) 500 mg tablet 500 mg PO BID RF: 0 cholecalciferol (vitamin D3) 50 mcg (2,000 unit) capsule 50 mcg PO QAM RF: 0 ibuprofen 200 mg Tablet 200 mg PO Q6H PRN (Reason: fever/pain) RF: 0 amlodipine 5 mg tablet 5 mg PO HS RF: 0 naproxen sodium 220 mg Tablet 220 mg PO Q12H PRN (Reason: Pain) RF: 0 Discharge Orders: Discharge Order (Routine); Ordered 06/20/21 Ordered By: Catrachito Jewell/Other Patient Handouts: Stroke and Heart Disease, Your Heart's Electrical System, Your High Blood Pressure Risk Factors, Calcium Channel Blockers Dc, Understanding Tachycardia Admission Data Admit Date/Time: 06/19/21 11:06 Attending Provider: Catrachito [place] Admit Provider: Tim Tripp Primary Care Provider: Farhat Urias Other Providers: Tim Tripp ; Norm Reynolds Other Interventions: Discharge Summary Assessment (RN) Last Done: 06/20/21 16:55 Coding Level of Care Code 54514 OBS Care - Discharge Diagnoses Palpitations R00.2 Abnormal ECG R94.31 HTN (hypertension) I10 Mitral regurgitation I34.0 Osteoarthritis M19.90 GERD (gastroesophageal reflux disease) K21.9
== END 2021-06-20 18:18 | disposition home or self-care (01) ==
LOC: EDINP 06:00 → ED 06:00 → SUATTDRO 11:06 → 2N 15:14
DX: R94.31 Abnormal electrocardiogram [ECG] [EKG]; M19.90 Unspecified osteoarthritis, unspecified site; I34.0 Nonrheumatic mitral (valve) insufficiency; E78.5 Hyperlipidemia, unspecified; R00.2 Palpitations; I10 Essential (primary) hypertension; I47.1 Supraventricular tachycardia; Z20.828 Contact with and (suspected) exposure to other viral communicable diseases; K21.9 Gastro-esophageal reflux disease without esophagitis; L71.9 Rosacea, unspecified; R07.89 Other chest pain; D86.1 Sarcoidosis of lymph nodes; Z79.899 Other long term (current) drug therapy